=== PATIENT | male | born 1995 | race Caucasian/White ===

== ENCOUNTER 2018-08-20 20:29 | Emergency (ER) | payer OTHER ==
--- NOTE | 2018-08-20 20:40 | UC ---
Respiratory Complaint HPI - HPI Summary HPI Summary: 23 yo male presents with sinus pain/pressure/congestion for the last 3 weeks. Today developed some chills and body aches. He has been taking dayquill, nyquill , theraflu, ibuprofen, wilber-seltzer, and tylenol with mild relief but no ultimate change in his symptoms. Denies fever, sore throat, productive cough, SOB, chest pain, abdominal pain, rash. - History of Current Complaint Stated Complaint: COUGH,HEADACHE Time Seen by Provider: 08/20/18 20:40 Hx Obtained From: Patient Onset/Duration: Gradual Onset Severity Initially: Mild Severity Currently: Moderate Pain Intensity: 7 Pain Scale Used: 0-10 Numeric - Allergies/Home Medications Allergies/Adverse Reactions: Allergies Allergy/AdvReac Type Severity Reaction Status Date / Time cefaclor [From [facility]] Allergy Hives Verified 08/20/18 20:42 PMH/Surg Hx/FS Hx/Imm Hx - Additional Past Medical History Additional PMH: None - Surgical History Surgical History: Yes Surgery Procedure, Year, and Place: TESTICULAR TORSION - Family History Known Family History: Positive: None - Social History Occupation: Employed Full-time Lives: With Family Alcohol Use: Daily Alcohol Amount: couple beers a day Substance Use Type: None Smoking Status (MU): Heavy Every Day Tobacco Smoker Type: Cigarettes Amount Used/How Often: 1/2 ppd Length of Time of Smoking/Using Tobacco: 7 years When Did the Patient Quit Smoking/Using Tobacco: 1 month ago - Immunization History Most Recent Tetanus Shot: 2014 Review of Systems All Other Systems Reviewed And Are Negative: Yes Constitutional: Positive: Fatigue, Other - Body aches Skin: Positive: Negative Eyes: Positive: Negative ENT: Positive: Nasal Discharge, Sinus Congestion, Sinus Pain/Tenderness Respiratory: Positive: Negative Cardiovascular: Positive: Negative Gastrointestinal: Positive: Negative Neurovascular: Positive: Negative Neurological: Positive: Negative Psychological: Positive: Negative Physical Exam - Summary Physical Exam Summary: GENERAL: NAD. WDWN. No pain distress. SKIN: No rashes, sores, lesions, or open wounds. HEENT: Head: AT/NC Eyes: EOM intact. Conjunctiva clear without inflammation or discharge. Ears: Hearing grossly normal. TMs intact, no bulging, erythema, or edema. Nose: Nasal mucosa mildly swollen and erythematous with yellow/ clear discharge. TTP maxillary and frontal sinus. Positive post nasal drip Throat: Posterior oropharynx without exudates, erythema, or tonsillar enlargement. Uvula midline. NECK: Supple. Nontender. No lymphadenopathy. CHEST: CTAB. No r/r/w. No accessory muscle use. Breathing comfortably and in no distress. CV: RRR. Without m/r/g. Pulses intact. NEURO: Alert. PSYCH: Age appropriate behavior. Triage Information Reviewed: Yes Vital Signs: Vital Signs: Temp Pulse Resp BP Pulse Ox 99.3 F 79 20 125/82 98 08/20/18 20:37 08/20/18 20:37 08/20/18 20:37 08/20/18 20:37 08/20/18 20:37 Laboratory Tests 08/20/18 20:48 Influenza A (Rapid) Negative Influenza B (Rapid) Negative Vital Signs Reviewed: Yes Respiratory Course/Dx - Course Course Of Treatment: Sinusitis - Differential Dx/Diagnosis Provider Diagnosis: Sinusitis Discharge - Sign-Out/Discharge Documenting (check all that apply): Patient Departure All imaging exams completed and their final reports reviewed: No Studies - Discharge Plan Condition: Stable Disposition: HOME Prescriptions: Amoxicillin/Clavulanate TAB* [Augmentin TAB 875*] 875 mg PO BID #14 tab Patient Education Materials: Sinusitis (ED) Referrals: Caesar Hopper MD [Primary Care Provider] - Additional Instructions: If you develop a fever, shortness of breath, chest pain, new or worsening symptoms - please call your PCP or go to the ED. - Billing Disposition and Condition Condition: STABLE Disposition: Home
[2018-08-20 20:41] VITALS: BP 125/82
[2018-08-20] MEDS ORDERED: Amoxicillin/Clavulanate TAB* 875 MG PO ONE (20:55)
[2018-08-20 21:01] LABS: Influenza A Molecular NEGATIVE (Negative); Influenza B Molecular NEGATIVE (Negative)
== END 2018-08-20 21:00 | disposition home or self-care (01) ==
LOC: UCEAST 20:29
DX: J32.9 Chronic sinusitis, unspecified (principal); Z88.1 Allergy status to other antibiotic agents; Z87.891 Personal history of nicotine dependence
CPT/HCPCS: 99212; A9270-GY; G0463

== ENCOUNTER 2018-11-11 14:19 | Emergency (ER) | payer OTHER ==
[2018-11-11 14:29] VITALS: BP 119/84
[2018-11-11] MEDS ORDERED: Bupivacaine 0.25% SDV PF* 10 ML VIAL INJ ONE (14:39)
--- NOTE | 2018-11-11 14:51 | UC ---
Dental HPI - HPI Summary HPI Summary: 23-year-old male describes left-sided dental pain off and on for one week that was worse since 9 PM last night. He states he has had dental work on that side and is due to be seen by [facility] next Sunday. He denies any fever, facial swelling or drainage. He has not been able to sleep. - History of Current Complaint Chief Complaint: UCDentalProblem Stated Complaint: DENTAL PAIN Time Seen by Provider: 11/11/18 14:35 Hx Obtained From: Patient Pain Intensity: 10 - Allergies/Home Medications Allergies/Adverse Reactions: Allergies Allergy/AdvReac Type Severity Reaction Status Date / Time cefaclor [From [facility]] Allergy Hives Verified 11/11/18 14:29 Home Medications: Home Medications Acetaminophen [Pain Reliever] 1,000 mg PO ONCE PRN 11/11/18 [History Confirmed 11/11/18] PMH/Surg Hx/FS Hx/Imm Hx Previously Healthy: Yes - Surgical History Surgical History: Yes Surgery Procedure, Year, and Place: TESTICULAR TORSION - Family History Known Family History: Positive: None, Non-Contributory - Social History Occupation: Employed Full-time Alcohol Use: Daily Alcohol Amount: couple beers a day Substance Use Type: None Smoking Status (MU): Heavy Every Day Tobacco Smoker Type: Cigarettes Amount Used/How Often: 1/2 ppd Length of Time of Smoking/Using Tobacco: 7 years When Did the Patient Quit Smoking/Using Tobacco: 1 month ago - Immunization History Most Recent Tetanus Shot: 2014 Review of Systems All Other Systems Reviewed And Are Negative: Yes Constitutional: Negative: Fever Skin: Negative: Rash ENT: Positive: Other - Dental pain Respiratory: Positive: Negative Physical Exam Triage Information Reviewed: Yes Appearance: Well-Appearing, No Pain Distress, Well-Nourished Vital Signs: Initial Vital Signs Temp 98.5 F 11/11/18 14:27 Pulse 85 11/11/18 14:27 Resp 14 11/11/18 14:27 BP 119/84 11/11/18 14:27 Pulse Ox 100 11/11/18 14:27 Eye Exam: Normal ENT: Positive: Normal ENT inspection, Pharynx normal Dental: Positive: Other: - Tender had a capped left lower first molar without gingival erythema, induration or swelling. No tenderness or evidence of inflamed tooth in the upper left teeth. All third molars have erupted. Neck: Positive: No Lymphadenopathy Respiratory: Positive: Lungs clear Cardiovascular: Positive: RRR Musculoskeletal: Positive: ROM Intact Neurological: Positive: Alert Skin Exam: Normal Procedures - Procedure Summary Procedure Summary: Dental block: Left-sided inferior alveolar block is performed as well as supra periosteal injection of the left upper first and second molar. Last, a greater pound teen block was performed. A total of 3 cc of 0.25% bupivacaine was used. Pain relief was excellent. He tolerated this well without complication. Dental Complaint Course/Dx - Course Course Of Treatment: Pain got with dental block. Placed on antibiotics. Follow-up with dental. - Differential Dx/Diagnosis Differential Diagnosis/Dx: Dental Abscess, Dental Caries, Fractured Tooth Provider Diagnosis: Dental abscess, Pain, dental Discharge - Sign-Out/Discharge Documenting (check all that apply): Patient Departure All imaging exams completed and their final reports reviewed: No Studies - Discharge Plan Condition: Improved Disposition: HOME Prescriptions: Chlorhexidine Gluconate [Periogard] 15 ml SWISH SPIT TID 10 Days #1 bottle Naproxen [Naproxen 500 mg tab] 500 mg PO BID PRN #14 tablet PRN Reason: Pain Penicillin VK 500 MG TAB(NF) [Penicillin VK 500 mg Tab] 500 mg PO TID #30 tab Patient Education Materials: Dental Abscess (ED) Referrals: Caesar Hopper MD [Primary Care Provider] - Additional Instructions: Follow up with [facility] as scheduled. Return with fever, facial swelling, worse or other concerns. - Billing Disposition and Condition Condition: IMPROVED Disposition: Home
== END 2018-11-11 14:59 | disposition home or self-care (01) ==
LOC: UCEAST 14:19
DX: K04.7 Periapical abscess without sinus (principal); F17.210 Nicotine dependence, cigarettes, uncomplicated
CPT/HCPCS: 99212; G0463; J3490